=== PATIENT | female | born 1950 | race Hispanic/Latino ===

== ENCOUNTER 2017-09-18 08:15 | Outpatient (CLI) | payer MEDICARE ==
--- NOTE | 2017-09-18 08:48 | XRay Report ---
RIGHT HAND RADIOGRAPHS INDICATION: Right hand pain. COMPARISON: None similar at this institution. FINDINGS: AP, lateral and oblique right hand radiographs demonstrate mild degenerative changes as interphalangeal joint spurring, most involving the first through third digits. No suspicious erosions. Intact articulation. Unremarkable soft tissues. CONCLUSION: Mild osteoarthritic changes, as described. Thank you for the opportunity to participate in this patient's care.
== END 2017-09-18 08:16 | disposition home or self-care (01) ==
LOC: SPVIMAG 08:15
PROVIDERS: ATTEND Orthopaedic Surgery
DX: M19.041 Primary osteoarthritis, right hand (principal)

== ENCOUNTER 2017-10-05 10:07 | Outpatient (CLI) | payer MEDICARE ==
--- NOTE | 2017-10-05 22:17 | XRay Report ---
FINAL REPORT PROCEDURE: Cervical spine. TECHNIQUE: Seven views including flexion and extension. HISTORY: Cervical radiculitis. COMPARISON: No prior studies are available for comparison. FINDINGS: The cervical vertebrae have normal height and alignment. There are no fractures. There is no subluxation. There is mild disc space narrowing at C5-6 and C6-7. There are small vertebral body osteophytes in the mid and lower cervical spine. The neural foramina are not optimally demonstrated. There is normal flexion and extension of the cervical spine. IMPRESSION: Degenerative disease as described. No significant abnormality.
== END 2017-10-05 10:08 | disposition home or self-care (01) ==
LOC: SPVIMAG 10:07
PROVIDERS: ATTEND Physical Medicine & Rehabilitation
DX: M50.10 Cervical disc disorder with radiculopathy, unspecified cervical region (principal)
CPT/HCPCS: 72052